=== PATIENT | male | born 1970 | race Caucasian/White ===

== ENCOUNTER 2019-09-10 11:24 | Emergency (ER) | payer BC, OTHER ==
[~2019-09-10] VITALS: Ht 165.1 cm; Wt 69.2 kg
[2019-09-10] MEDS ORDERED: ACETAMINOPHEN 325 MG TAB PO ONE (11:30)
[2019-09-10 12:07] VITALS: BP 141/84
[2019-09-10] MEDS ORDERED: CEFTRIAXONE SOD 1 GM VIAL IM ONE (12:15)
[2019-09-10] MEDS ORDERED: ACETAMINOPHEN 325 MG TAB ONE (12:20)
--- NOTE | 2019-09-10 12:49 | Diagnostic Imaging Report ---
EXAMINATION: CXR 2 VIEW - HOPD INDICATION: Cough, flu ^[id number] ^[id number] COMPARISON: None FINDINGS: PA and lateral views TUBES and LINES: None. LUNGS: Lungs are well inflated. Rounded opacities in the inferior right upper lobe and triangle shaped opacity of the right middle lobe. Left lung is clear PLEURA: No pleural effusion or pneumothorax. HEART AND MEDIASTINUM: The cardiomediastinal silhouette is unremarkable. BONES AND SOFT TISSUES: No focal osseous lesions. Soft tissues are unremarkable. UPPER ABDOMEN: Unremarkable. IMPRESSION: Airspace opacities in the right lung may represent pneumonia in the appropriate clinical setting. Recommend close interval follow-up to document interval change/resolution. Signed by: Dr. Jose Alvarez MD on 09/10/2019 12:45 PM
[2019-09-10] MEDS ORDERED: IBUPROFEN 200 MG TAB PO ONE (13:00)
== END 2019-09-10 13:46 | disposition home or self-care (01) ==
LOC: FSED 11:24
DX: R50.9 Fever, unspecified (principal); R05 Cough; J15.9 Unspecified bacterial pneumonia; J18.0 Bronchopneumonia, unspecified organism; J02.0 Streptococcal pharyngitis
CPT/HCPCS: 71046; 83518; 87400; 96372; 99283; J0696